=== PATIENT | female | born 1980 | race Caucasian/White ===

== ENCOUNTER 2016-12-26 16:06 | Emergency (ER) | payer OTHER ==
--- NOTE | 2016-12-26 16:43 | ED NURSING NOTES ---
Clinical Report - Nurses [facility] [address] [place] [address] 12/26/2016 16:07 Patient: HOLLY FRANK TRIAGE Triage time 16:17 Dec 26 2016. Acuity: LEVEL 3. Chief Complaint: VAGINAL BLEED. Alert. --16:26 Roger Chi R.N. 16:17 12/26/16. BP: 120/58. HR: 69. RR: 16. O2 saturation: 98% on room air. Temp: 98.2 F. Pain level now: 0/10. --16:26 Roger Chi R.N. Weight: 62.1 kg stated. Height/Length: 63 inches Per Patient. BMI: 24.3. --16:16 Roger Chi R.N. Medications Misoprostol Oral. --16:20 Roger Chi R.N. Allergies Latex. --16:17 Roger Chi R.N. Oxycodone. --16:17 Roger Chi R.N. Atorvastatin. --16:17 Roger Chi R.N. Bupropion. --16:17 Roger Chi R.N. Venlafaxine. --16:18 Roger Chi R.N. Erythromycin. --16:18 Roger Chi R.N. Penicillin. --16:18 Roger Chi R.N. Potassium. --16:18 Roger Chi R.N. History Arrived by private vehicle. Historian: patient. ( Pt is 10 weeks , went to see her OB last week and there was no heart beat. Pt was given Rx for Misoprostol, which she started taking last night. Pt had some bleeding and cramping with no obvious passage of tissue. Pt presents today with a cessation of bleeding, cramping is intermittent. Her OB recommended she be seen here in ED for f/u.). This started last night. 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 PAST MEDICAL HX: Immunizations: up-to-date. Last normal menstrual period- October 18. SOCIAL HX: Never smoker. No alcohol use or drug use. No infectious disease exposure. ABUSE ASSESSMENT: No report of abuse. SELF HARM ASSESSMENT: A self harm assessment was performed. The patient answered "yes" to the question "Have you recently felt down, depressed, or hopeless?" and "no" to the question "Are you here because you tried to hurt yourself?" and "Have you recently had thoughts about harming or killing others?". FALL RISK ASSESSMENT: Fall risk assessment completed. No fall risk identified. NUTRITIONAL RISK ASSESSMENT: The nutritional risk assessment revealed no deficiencies. FUNCTIONAL ASSESSMENT: Functional assessment: no impairments noted. LEARNING NEEDS ASSESSMENT: The learning needs assessment revealed no barriers. SKIN INTEGRITY ASSESSMENT: Skin integrity risk assessment completed. No skin integrity risk identified. --16:26 Roger Chi R.N. Primary physician (Dr. Marquez at [facility]). --16:30 Roger Chi R.N. PROBLEMS: Spontaneous (Miscarriage). OB History. Threatened . Raynaud's Phenomenon. . --16:21 Roger Chi R.N. ADDITIONAL SURGERIES: . Right Forearm. --16:21 Roger Chi R.N. Interventions ID band on patient. To treatment room. --16:26 Roger Chi R.N. PHYSICAL ASSESSMENT Ambulatory to room. GENERAL / NEURO / PSYCH: Alert. Oriented X 4. Appears in distress. HEENT: Mucous membranes are pink. RESPIRATORY: Respirations not labored. CVS: Capillary refill less than 2 seconds. GI / : Bowel sounds within normal limits. Scant vaginal bleeding present, consisting of dark blood. SKIN: Skin is warm and dry. --16:26 Roger Chi R.N. NURSING PROGRESS NOTES The plan of care for this patient has been created. Monitoring of patient in place. Patient gowned. Head of bed elevated. Reassurance given. Two patient identifiers checked. Call light placed in reach. Side rails up x 2. Bed placed in lowest position. Patient ready for evaluation. --16:27 Roger Chi R.N. 17:04 12/26/2016 MISOPROSTOL PO Tablets 100 mcg given. Allergies verified and confirmed 5 rights. --17:04 Roger Chi R.N. ( Pt resting in bed, PA has been in to see Pt and discuss POC.). --17:04 Roger Chi R.N. DISPOSITION / DISCHARGE 17:04 12/26/16. BP: 105/68. HR: 67. RR: 16. O2 saturation: 99% on room air. Temp: deferred. Pain level now: 0/10. --17:04 Roger Chi R.N. Departure time: 17:12. Condition at departure: unchanged. No learning barriers present. Discharge instructions provided and reviewed with the patient. Patient verbalized understanding. Written instructions provided in Kiswahili. The patient was discharged home. She left the Emergency Department ambulatory and via private vehicle. Patient driving. --17:12 Sharon Busby R.N. 17:11 12/26/16. BP: 105/68. HR: 70. RR: 16. O2 saturation: 99%. Pain level now 0/10. --17:12 Sharon Busby R.N. Locked/Released at 12/26/2016 18:08 by Sharon Busby R.N.
--- NOTE | 2016-12-26 16:43 | ED ORDER SUMMARY ---
..... Patient: HOLLY FRANK OrderSheet [facility] VisitID: [id number] [address] [place] [address] 36y, F Registration Date/Time: 12/26/2016 ORDER SHEET Weight: 62.1 kg (stated) Allergies: Latex, Oxycodone, Atorvastatin, Bupropion, Venlafaxine, Erythromycin, Penicillin, Potassium GENERAL ORDERS: MEDICATION ORDERS: Misoprostol PO (Tablet 100 mcg) 800 mcg (NOW) (16:42 12/26/2016 Reynaldo Crowley) (k 16:56 Maurice R.N.) (17:04 Maurice R.N.) IV FLUIDS: ORDER SHEET NOTES: [Electronically signed by Sharon Busby R.N. (18:08 12/26/2016)] [Electronically signed by April Bates P.A.-C (18:38 12/26/2016)] [Electronically locked/signed by Sharon Busby R.N. (18:08 12/26/2016)]
--- NOTE | 2016-12-26 16:43 | ED ORDER SUMMARY ---
..... Patient: HOLLY FRANK OrderSheet [facility] VisitID: [id number] [address] [place] [address] 36y, F Registration Date/Time: 12/26/2016 ORDER SHEET Weight: 62.1 kg (stated) Allergies: Latex, Oxycodone, Atorvastatin, Bupropion, Venlafaxine, Erythromycin, Penicillin, Potassium GENERAL ORDERS: MEDICATION ORDERS: Misoprostol PO (Tablet 100 mcg) 800 mcg (NOW) (16:42 12/26/2016 Reynaldo Crowley) (k 16:56 Maurice R.N.) (17:04 Maurice R.N.) IV FLUIDS: ORDER SHEET NOTES: [Electronically signed by Sharon Busby R.N. (18:08 12/26/2016)] [Electronically signed by April Bates P.A.-C (18:38 12/26/2016)] [Electronically locked/signed by Sharon Busby R.N. (18:08 12/26/2016)]
--- NOTE | 2016-12-26 16:43 | ED CLINICAL REPORT ---
Clinical Report - Physicians/Mid Levels [facility] [address] [place] [address] 12/26/2016 16:07 [id number] Time Seen: 16:36 Dec 26 2016. Arrived- By private vehicle. Historian- patient. HISTORY OF PRESENT ILLNESS Chief Complaint: lack of heart tones, spontaneous ab (incomplete). Still present. The symptoms are described as mild. No pelvic pain, vaginal pain, pain with urination or urinary frequency. Last normal menstrual period- october 18. ( 10 weeks iup confirmed on us, pt states she is O neg, had rhogam 3 weeks prior, reports taking 600 mcg po misoprostolo last night, had cramping, mild spotting, and none now). REVIEW OF SYSTEMS No nausea, diarrhea or skin rash. All systems otherwise negative, except as recorded above. SOCIAL HISTORY Never smoker. No alcohol use or drug use. ADDITIONAL NOTES The nursing notes have been reviewed. PHYSICAL EXAM Vital Signs: 12/26/2016 16:17 BP: 120/58. HR: 69. RR: 16. O2 saturation: 98%. Temp: 98.2 F. Pain level now: 0/10. Appearance: Alert. HEENT: Normal external inspection. CVS: Heart sounds normal. Respiratory: No respiratory distress. Breath sounds normal. Abdomen: Soft. No mass. No abdominal tenderness. Skin: Skin warm. Neuro: Oriented X 3. PROGRESS AND PROCEDURES Course of Care: Discussed case with OB on-call, Dr. Deleon, who recommends 800 Mcg Misoprostol. patient is normal cardiac, no bleeding. No distress. Abdomen soft. No guarding.. Patient euvolemic appearing, 10 weeks with no heart tone as per previous ultrasound. Patient will be taking the medications, and have a miscarriage at home. She is comfortable with this plan. Return precautions discussed. Patient is stable. The patient's symptoms are unchanged. Patient/family counseled. Disposition: Discharged. CLINICAL IMPRESSION Incomplete spontaneous (miscarriage). Rh-immunoglobulin (Rhogam) not adminstered because the patient had received it in the last 12 weeks. No complications. INSTRUCTIONS Warnings: Further evaluation is necessary. Prescription Medications: Oxycodone/APAP 5 mg/325 mg: take 1 tablet orally every 6 hours as needed for pain. Dispense twelve (12). (Electronically signed by April Bates P.A.-C 12/26/2016 18:38)
--- NOTE | 2016-12-26 16:43 | ED NURSING NOTES ---
Clinical Report - Nurses Merged [facility] [address] [place] [address] 12/26/2016 16:07 Patient: HOLLY FRANK TRIAGE Triage time 16:17 Dec 26 2016. Acuity: LEVEL 3. Chief Complaint: VAGINAL BLEED. Alert. --16:26 Roger Chi R.N. 16:17 12/26/16. BP: 120/58. HR: 69. RR: 16. O2 saturation: 98% on room air. Temp: 98.2 F. Pain level now: 0/10. --16:26 Roger Chi R.N. Weight: 62.1 kg stated. Height/Length: 63 inches Per Patient. BMI: 24.3. --16:16 Roger Chi R.N. Medications Misoprostol Oral. --16:20 Roger Chi R.N. Allergies Latex. --16:17 Roger Chi R.N. Oxycodone. --16:17 Roger Chi R.N. Atorvastatin. --16:17 Roger Chi R.N. Bupropion. --16:17 Roger Chi R.N. Venlafaxine. --16:18 Roger Chi R.N. Erythromycin. --16:18 Roger Chi R.N. Penicillin. --16:18 Roger Chi R.N. Potassium. --16:18 Roger Chi R.N. History Arrived by private vehicle. Historian: patient. ( Pt is 10 weeks , went to see her OB last week and there was no heart beat. Pt was given Rx for Misoprostol, which she started taking last night. Pt had some bleeding and cramping with no obvious passage of tissue. Pt presents today with a cessation of bleeding, cramping is intermittent. Her OB recommended she be seen here in ED for f/u.). This started last night. 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 PAST MEDICAL HX: Immunizations: up-to-date. Last normal menstrual period- October 18. SOCIAL HX: Never smoker. No alcohol use or drug use. No infectious disease exposure. ABUSE ASSESSMENT: No report of abuse. SELF HARM ASSESSMENT: A self harm assessment was performed. The patient answered "yes" to the question "Have you recently felt down, depressed, or hopeless?" and "no" to the question "Are you here because you tried to hurt yourself?" and "Have you recently had thoughts about harming or killing others?". FALL RISK ASSESSMENT: Fall risk assessment completed. No fall risk identified. NUTRITIONAL RISK ASSESSMENT: The nutritional risk assessment revealed no deficiencies. FUNCTIONAL ASSESSMENT: Functional assessment: no impairments noted. LEARNING NEEDS ASSESSMENT: The learning needs assessment revealed no barriers. SKIN INTEGRITY ASSESSMENT: Skin integrity risk assessment completed. No skin integrity risk identified. --16:26 Roger Chi R.N. Primary physician (Dr. Marquez at [facility]). --16:30 Roger Chi R.N. PROBLEMS: Spontaneous (Miscarriage). OB History. Threatened . Raynaud's Phenomenon. . --16:21 Roger Chi R.N. ADDITIONAL SURGERIES: . Right Forearm. --16:21 Roger Chi R.N. Interventions ID band on patient. To treatment room. --16:26 Roger Chi R.N. PHYSICAL ASSESSMENT Ambulatory to room. GENERAL / NEURO / PSYCH: Alert. Oriented X 4. Appears in distress. HEENT: Mucous membranes are pink. RESPIRATORY: Respirations not labored. CVS: Capillary refill less than 2 seconds. GI / : Bowel sounds within normal limits. Scant vaginal bleeding present, consisting of dark blood. SKIN: Skin is warm and dry. --16:26 Roger Chi R.N. NURSING PROGRESS NOTES The plan of care for this patient has been created. Monitoring of patient in place. Patient gowned. Head of bed elevated. Reassurance given. Two patient identifiers checked. Call light placed in reach. Side rails up x 2. Bed placed in lowest position. Patient ready for evaluation. --16:27 Roger Chi R.N. 17:04 12/26/2016 MISOPROSTOL PO Tablets 100 mcg given. Allergies verified and confirmed 5 rights. --17:04 Roger Chi R.N. ( Pt resting in bed, PA has been in to see Pt and discuss POC.). --17:04 Roger Chi R.N. DISPOSITION / DISCHARGE 17:04 12/26/16. BP: 105/68. HR: 67. RR: 16. O2 saturation: 99% on room air. Temp: deferred. Pain level now: 0/10. --17:04 Roger Chi R.N. Departure time: 17:12. Condition at departure: unchanged. No learning barriers present. Discharge instructions provided and reviewed with the patient. Patient verbalized understanding. Written instructions provided in Spanish. The patient was discharged home. She left the Emergency Department ambulatory and via private vehicle. Patient driving. --17:12 Sharon Busby R.N. 17:11 12/26/16. BP: 105/68. HR: 70. RR: 16. O2 saturation: 99%. Pain level now 0/10. --17:12 Sharon Busby R.N. Locked/Released at 12/26/2016 18:08 by Sharon Busby R.N.
--- NOTE | 2016-12-26 16:43 | ED CLINICAL REPORT ---
Clinical Report - Physicians/Mid Levels [facility] [address] [place] [address] 12/26/2016 16:07 [id number] Time Seen: 16:36 Dec 26 2016. Arrived- By private vehicle. Historian- patient. HISTORY OF PRESENT ILLNESS Chief Complaint: lack of heart tones, spontaneous ab (incomplete). Still present. The symptoms are described as mild. No pelvic pain, vaginal pain, pain with urination or urinary frequency. Last normal menstrual period- october 18. ( 10 weeks iup confirmed on us, pt states she is O neg, had rhogam 3 weeks prior, reports taking 600 mcg po misoprostolo last night, had cramping, mild spotting, and none now). REVIEW OF SYSTEMS No nausea, diarrhea or skin rash. All systems otherwise negative, except as recorded above. SOCIAL HISTORY Never smoker. No alcohol use or drug use. ADDITIONAL NOTES The nursing notes have been reviewed. PHYSICAL EXAM Vital Signs: 12/26/2016 16:17 BP: 120/58. HR: 69. RR: 16. O2 saturation: 98%. Temp: 98.2 F. Pain level now: 0/10. Appearance: Alert. HEENT: Normal external inspection. CVS: Heart sounds normal. Respiratory: No respiratory distress. Breath sounds normal. Abdomen: Soft. No mass. No abdominal tenderness. Skin: Skin warm. Neuro: Oriented X 3. PROGRESS AND PROCEDURES Course of Care: Discussed case with OB on-call, Dr. Deleon, who recommends 800 Mcg Misoprostol. patient is normal cardiac, no bleeding. No distress. Abdomen soft. No guarding.. Patient euvolemic appearing, 10 weeks with no heart tone as per previous ultrasound. Patient will be taking the medications, and have a miscarriage at home. She is comfortable with this plan. Return precautions discussed. Patient is stable. The patient's symptoms are unchanged. Patient/family counseled. Disposition: Discharged. CLINICAL IMPRESSION Incomplete spontaneous (miscarriage). Rh-immunoglobulin (Rhogam) not adminstered because the patient had received it in the last 12 weeks. No complications. INSTRUCTIONS Warnings: Further evaluation is necessary. Prescription Medications: Oxycodone/APAP 5 mg/325 mg: take 1 tablet orally every 6 hours as needed for pain. Dispense twelve (12). (Electronically signed by April Bates P.A.-C 12/26/2016 18:38)
--- NOTE | 2016-12-26 18:38 | ED MAR SUMMARY ---
..... Medication Administration Record [facility] [address] [place] [address] Patient: HOLLY FRANK Visit ID: [id number] 36y, F Weight: 62.1 kg Height/Length: 63 in BMI: 24.3 ALLERGIES: Potassium, Penicillin, Erythromycin, Venlafaxine, Bupropion, Atorvastatin, Oxycodone, Latex Given 17:04 12/26/2016 Roger Chi R.N. Medication Administered: MISOPROSTOL [PO], Dose: 100 mcg Tablets PO. Medication Ordered: Misoprostol PO (Tablet 100 mcg) 800 mcg (NOW).
--- NOTE | 2016-12-26 18:38 | ED MAR SUMMARY ---
..... Medication Administration Record [facility] [address] [place] [address] Patient: HOLLY FRANK Visit ID: [id number] 36y, F Weight: 62.1 kg Height/Length: 63 in BMI: 24.3 ALLERGIES: Potassium, Penicillin, Erythromycin, Venlafaxine, Bupropion, Atorvastatin, Oxycodone, Latex Given 17:04 12/26/2016 Roger Chi R.N. Medication Administered: MISOPROSTOL [PO], Dose: 100 mcg Tablets PO. Medication Ordered: Misoprostol PO (Tablet 100 mcg) 800 mcg (NOW).
--- NOTE | 2016-12-26 18:38 | ED DISCHARGE INSTRUCTIONS ---
Patient: HOLLY FRANK General Instructions [facility] VisitID: [id number] [place] [address] 36y, F Registration Date/Time: 12/26/2016 Incomplete spontaneous (miscarriage). Rh-immunoglobulin (Rhogam) not adminstered because the patient had received it in the last 12 weeks. No complications. INSTRUCTIONS Warnings: Further evaluation is necessary. Prescription Medications: Oxycodone/APAP 5 mg/325 mg: take 1 tablet orally every 6 hours as needed for pain. Dispense twelve (12). ADDITIONAL INFORMATION Miscarriage, Spontaneous (Completed) Todays exam shows that your has ended suddenly. While this may be an emotionally difficult time for you, know that it is not an uncommon event. A miscarriage can be due to various causes. These include a problem with the babys chromosomes (genes that carry the information needed for life) or with fertilization or implantation that didnt happen correctly. In most cases no cause can be found. Be assured that this miscarriage was not the result of anything that you did wrong, and it will not interfere with your ability to become in the future. It appears that your miscarriage is complete and all tissue from the has passed. If there are parts of the tissue that remain in the uterus, you will probably have more cramping and bleeding. Home Care: You may resume normal activities if you are not having heavy bleeding or pain. Until the bleeding stops completely and to prevent infection: Do not have sexual intercourse for as long as your healthcare provider tells you. Use sanitary pads instead of tampons. Do not douche. If you feel sadness or grief, it may help to talk about your feelings with family and friends, or with a counselor. Follow Up: Make an appointment to see your doctor in the next one to two weeks for a checkup. If cramping and bleeding return and continue for more than a few days, call your doctor or return here for an exam. The doctor may need to remove remaining tissue from the uterus to stop the bleeding and prevent infection. Or, you may be prescribed medication to take at home to help your body expel the remaining tissue. Note: If you had an ultrasound it will be reviewed by a specialist. You will be notified of any new findings that may affect your care. Get Prompt Medical Attention if any of the following occur: Heavy bleeding (soaking one new pad an hour over three hours) Bleeding that does not stop after ten days Foul-smelling vaginal discharge Fever of 100.4F (38C) or higher, or as directed by your healthcare provider Increasing lower abdominal pain Weakness, dizziness, or fainting Oxycodone Hydrochloride, Acetaminophen Oral tablet What is this medicine? ACETAMINOPHEN; OXYCODONE (a set a ALBERT cydney fen; ox i KOE done) is a pain reliever. It is used to treat mild to moderate pain. How should I use this medicine? Take this medicine by mouth with a full glass of water. Follow the directions on the prescription label. Take your medicine at regular intervals. Do not take your medicine more often than directed. Talk to your filtration supervisor regarding the use of this medicine in children. Special care may be needed. Patients over 65 years old may have a stronger reaction and need a smaller dose. What side effects may I notice from receiving this medicine? Side effects that you should report to your doctor or health clinical care coordinator as soon as possible: allergic reactions like skin rash, itching or hives, swelling of the face, lips, or tongue breathing difficulties, wheezing confusion light headedness or fainting spells severe stomach pain yellowing of the skin or the whites of the eyes Side effects that usually do not require medical attention (report to your doctor or health clinical care coordinator if they continue or are bothersome): dizziness drowsiness nausea vomiting What may interact with this medicine? alcohol antihistamines barbiturates like amobarbital, butalbital, butabarbital, methohexital, pentobarbital, phenobarbital, thiopental, and secobarbital benztropine drugs for bladder problems like solifenacin, trospium, oxybutynin, tolterodine, hyoscyamine, and methscopolamine drugs for breathing problems like ipratropium and tiotropium drugs for certain stomach or intestine problems like propantheline, homatropine methylbromide, glycopyrrolate, atropine, belladonna, and dicyclomine general anesthetics like etomidate, ketamine, nitrous oxide, propofol, desflurane, enflurane, halothane, isoflurane, and sevoflurane medicines for depression, anxiety, or psychotic disturbances medicines for sleep muscle relaxants naltrexone narcotic medicines (opiates) for pain phenothiazines like perphenazine, thioridazine, chlorpromazine, mesoridazine, fluphenazine, prochlorperazine, promazine, and trifluoperazine scopolamine tramadol trihexyphenidyl What if I miss a dose? If you miss a dose, take it as soon as you can. If it is almost time for your next dose, take only that dose. Do not take double or extra doses. Where should I keep my medicine? Keep out of the reach of children. This medicine can be abused. Keep your medicine in a safe place to protect it from theft. Do not share this medicine with anyone. Selling or giving away this medicine is dangerous and against the law. Store at room temperature between 20 and 25 degrees C (68 and 77 degrees F). Keep container tightly closed. Protect from light. This medicine may cause accidental overdose and if it is taken by other adults, children, or pets. Flush any unused medicine down the toilet to reduce the chance of harm. Do not use the medicine after the expiration date. What should I tell my health care provider before I take this medicine? They need to know if you have any of these conditions: brain tumor Crohn's disease, inflammatory bowel disease, or ulcerative colitis drink more than 3 alcohol containing drinks per day drug abuse or addiction head injury heart or circulation problems kidney disease or problems going to the bathroom liver disease lung disease, asthma, or breathing problems an unusual or allergic reaction to acetaminophen, oxycodone, other opioid analgesics, other medicines, foods, dyes, or preservatives or trying to get breast-feeding What should I watch for while using this medicine? Tell your doctor or health clinical care coordinator if your pain does not go away, if it gets worse, or if you have new or a different type of pain. You may develop tolerance to the medicine. Tolerance means that you will need a higher dose of the medication for pain relief. Tolerance is normal and is expected if you take this medicine for a long time. Do not suddenly stop taking your medicine because you may develop a severe reaction. Your body becomes used to the medicine. This does NOT mean you are addicted. Addiction is a behavior related to getting and using a drug for a non-medical reason. If you have pain, you have a medical reason to take pain medicine. Your doctor will tell you how much medicine to take. If your doctor wants you to stop the medicine, the dose will be slowly lowered over time to avoid any side effects. You may get drowsy or dizzy. Do not drive, use machinery, or do anything that needs mental alertness until you know how this medicine affects you. Do not stand or sit up quickly, especially if you are an older patient. This reduces the risk of dizzy or fainting spells. Alcohol may interfere with the effect of this medicine. Avoid alcoholic drinks. There are different types of narcotic medicines (opiates) for pain. If you take more than one type at the same time, you may have more side effects. Give your health care provider a list of all medicines you use. Your doctor will tell you how much medicine to take. Do not take more medicine than directed. Call emergency for help if you have problems breathing. The medicine will cause constipation. Try to have a bowel movement at least every 2 to 3 days. If you do not have a bowel movement for 3 days, call your doctor or health clinical care coordinator. Do not take Tylenol (acetaminophen) or medicines that have acetaminophen with this medicine. Too much acetaminophen can be very dangerous. Many nonprescription medicines contain acetaminophen. Always read the labels carefully to avoid taking more acetaminophen. You have been given the following additional information: Miscarriage, Spontaneous (Completed) Oxycodone Hydrochloride, Acetaminophen Oral tablet (Electronically signed by April Bates P.A.-C 12/26/2016 18:38)
--- NOTE | 2016-12-26 18:38 | ED MED RECONCILIATION SUMMARY ---
Patient: FLOPARIS HOLLY M Medication Reconciliation Report [facility] VisitID: [id number] [address] [place] [address] 36y, F Registration Date/Time: 12/26/2016 Weight: 62.1 kg Height/Length: 63 in. BMI: 24.3 ALLERGIES: Atorvastatin, Bupropion, Erythromycin, Latex, Oxycodone, Penicillin, Potassium, Venlafaxine The patient's Home Medications are listed below: THE FOLLOWING MEDICATIONS NEED TO BE RECONCILED: Misoprostol Oral The source(s) of the original Home Medication information: Not obtained. The following Medications were given to the patient in the Emergency Department: MISOPROSTOL [PO] PO 100 mcg, administered: 12/26/2016 5:04:00 PM The following Medications were prescribed to the patient: Oxycodone/APAP 5 mg/325 mg: take 1 tablet orally every 6 hours as needed for pain. Dispense twelve (12). -- April Bates P.A.-C
--- NOTE | 2016-12-26 18:38 | ED MED RECONCILIATION SUMMARY ---
Patient: FLOPARIS HOLLY M Medication Reconciliation Report [facility] VisitID: [id number] [address] [place] [address] 36y, F Registration Date/Time: 12/26/2016 Weight: 62.1 kg Height/Length: 63 in. BMI: 24.3 ALLERGIES: Atorvastatin, Bupropion, Erythromycin, Latex, Oxycodone, Penicillin, Potassium, Venlafaxine The patient's Home Medications are listed below: THE FOLLOWING MEDICATIONS NEED TO BE RECONCILED: Misoprostol Oral The source(s) of the original Home Medication information: Not obtained. The following Medications were given to the patient in the Emergency Department: MISOPROSTOL [PO] PO 100 mcg, administered: 12/26/2016 5:04:00 PM The following Medications were prescribed to the patient: Oxycodone/APAP 5 mg/325 mg: take 1 tablet orally every 6 hours as needed for pain. Dispense twelve (12). -- April Bates P.A.-C
== END 2016-12-26 17:12 | disposition home or self-care (01) ==
LOC: ED SRH 16:06
DX: O03.4 Incomplete spontaneous abortion without complication (principal); Z3A.10 10 weeks gestation of pregnancy; Z88.0 Allergy status to penicillin; Z88.1 Allergy status to other antibiotic agents; Z88.5 Allergy status to narcotic agent; Z88.8 Allergy status to other drugs, medicaments and biological substances; Z91.040 Latex allergy status